=== PATIENT | female | born 1950 | race American Indian/Alaskan Native ===

== ENCOUNTER 2017-06-23 19:54 | Emergency (ER) | payer MEDICARE, OTHER ==
--- NOTE | 2017-06-23 23:12 | Emergency Department Report ---
- General Chief Complaint: Upper Respiratory Infection Stated Complaint: SEVERE COUGH Time Seen by Provider: 06/23/17 23:11 Source: patient Mode of arrival: Ambulatory Limitations: No Limitations - History of Present Illness Initial Comments: 66F PMH HTN, Arthritis p/w c/o persistent cough x4 days. Denies nausea, vomiting , fever, chills, chest pain, abdominal pain. AAOx3, speaking in fulls sentences , no audible wheezing or stridor. States cough is slightly productive. Has been taking some yaxt-vpy-nlntlor cold medicine with minimal relief of cough. States she has multiple sick family members with similar symptoms. MD Complaint: cough Onset/Timin -: week(s) Severity: moderate Consistency: constant Improves With: OTC cold medicine Context: sick contacts Associated Symptoms: cough Treatments Prior to Arrival: "cold medicine" - Related Data Previous Rx's Medication Instructions Recorded Last Taken Type EPINEPHrine [Epipen 2-Aaron] 0.3 mg IM ONCE #1 ml 05/22/15 Unknown Rx Ibuprofen [Motrin] 600 mg PO Q8H PRN #40 tablet 11/11/15 Unknown Rx predniSONE [Deltasone] 50 mg PO QDAY #5 tab 11/11/15 Unknown Rx traMADol [Ultram] 50 mg PO Q4HR PRN #20 tablet 11/11/15 Unknown Rx Albuterol Sulfate [Ventolin Hfa] 1 puff IH Q4H PRN #1 hfa.aer.ad 06/24/17 Unknown Rx Benzonatate [Tessalon Perles] 100 mg PO Q8HR PRN #30 capsule 06/24/17 Unknown Rx Naproxen 250 mg PO BID PRN #20 tablet 06/24/17 Unknown Rx Phenylephrine/Dm/Acetaminop/GG 10 ml PO Q4H PRN #1 liquid 06/24/17 Unknown Rx [Mucinex Xsdb-Whq-Bwpeajnhvg Lq] Allergies Allergy/AdvReac Type Severity Reaction Status Date / Time acetaminophen Allergy Rash Verified 11/11/15 10:57 [From Tylenol-Codeine #3] codeine phosphate Allergy Rash Verified 11/11/15 10:57 [From Tylenol-Codeine #3] Fish Containing Products Allergy Anaphylaxis Verified 11/11/15 10:57 ED Review of Systems ROS: Stated complaint: SEVERE COUGH Other details as noted in HPI Constitutional: denies: chills, fever Eyes: denies: eye pain, eye discharge, vision change ENT: denies: ear pain, throat pain Respiratory: cough. denies: shortness of breath, wheezing Cardiovascular: denies: chest pain, palpitations Endocrine: no symptoms reported Gastrointestinal: denies: abdominal pain, nausea, diarrhea Genitourinary: denies: urgency, dysuria, discharge Musculoskeletal: denies: back pain, joint swelling, arthralgia Skin: denies: rash, lesions Neurological: denies: headache, weakness, paresthesias Psychiatric: denies: anxiety, depression Hematological/Lymphatic: denies: easy bleeding, easy bruising ED Past Medical Hx - Past Medical History Hx Hypertension: Yes Hx Arthritis: Yes Hx Psychiatric Treatment: Yes (anxiety) - Social History Smoking Status: Never Smoker Substance Use Type: None - Medications Home Medications: Home Medications Medication Instructions Recorded Confirmed Last Taken Type EPINEPHrine [Epipen 2-Aaron] 0.3 mg IM ONCE #1 ml 05/22/15 Unknown Rx Ibuprofen [Motrin] 600 mg PO Q8H PRN #40 tablet 11/11/15 Unknown Rx predniSONE [Deltasone] 50 mg PO QDAY #5 tab 11/11/15 Unknown Rx traMADol [Ultram] 50 mg PO Q4HR PRN #20 tablet 11/11/15 Unknown Rx Albuterol Sulfate [Ventolin Hfa] 1 puff IH Q4H PRN #1 hfa.aer.ad 06/24/17 Unknown Rx Benzonatate [Tessalon Perles] 100 mg PO Q8HR PRN #30 capsule 06/24/17 Unknown Rx Naproxen 250 mg PO BID PRN #20 tablet 06/24/17 Unknown Rx Phenylephrine/Dm/Acetaminop/GG 10 ml PO Q4H PRN #1 liquid 06/24/17 Unknown Rx [Mucinex Quig-Sax-Meysgbncqq Lq] ED Physical Exam - General Limitations: No Limitations General appearance: alert, in no apparent distress - Head Head exam: Present: atraumatic, normocephalic - Eye Eye exam: Present: normal appearance, PERRL, EOMI - ENT ENT exam: Present: mucous membranes moist - Neck Neck exam: Present: normal inspection - Respiratory Respiratory exam: Present: normal lung sounds bilaterally. Absent: respiratory distress - Cardiovascular Cardiovascular Exam: Present: regular rate, normal rhythm. Absent: systolic murmur, diastolic murmur, rubs, gallop - GI/Abdominal GI/Abdominal exam: Present: soft, normal bowel sounds - Extremities Exam Extremities exam: Present: normal inspection - Back Exam Back exam: Present: normal inspection - Neurological Exam Neurological exam: Present: alert, oriented X3 - Psychiatric Psychiatric exam: Present: normal affect, normal mood - Skin Skin exam: Present: warm, dry, intact, normal color. Absent: rash ED Course Vital Signs 06/23/17 20:30 Temperature 98.9 F Pulse Rate 68 Respiratory 18 Rate Blood Pressure 139/83 O2 Sat by Pulse 98 Oximetry ED Medical Decision Making - Medical Decision Making A/P: Upper respiratory infection 1-naproxen, Mucinex, albuterol inhaler, Tessalon Perles 2-as patient has only had cough for 4 days and x-ray is unremarkable without fever hypoxia or tachycardia no indication for antibiotics at this time 3-follow-up with primary care doctor Critical care attestation.: If time is entered above; I have spent that time in minutes in the direct care of this critically ill patient, excluding procedure time. ED Disposition Clinical Impression: Upper respiratory infection Qualifiers: URI type: unspecified viral URI Qualified Code(s): J06.9 - Acute upper respiratory infection, unspecified; B97.89 - Other viral agents as the cause of diseases classified elsewhere; B97.89 - Other viral agents as the cause of diseases classified elsewhere Disposition: DC-01 TO HOME OR SELFCARE Is pt being admited?: No Does the pt Need Aspirin: No Condition: Stable Instructions: Cold Symptoms (ED), Upper Respiratory Infection (ED), Viral Syndrome (ED) Prescriptions: Albuterol Sulfate [Ventolin Hfa] 1 puff IH Q4H PRN #1 hfa.aer.ad PRN Reason: Cough Benzonatate [Tessalon Perles] 100 mg PO Q8HR PRN #30 capsule PRN Reason: Cough Naproxen 250 mg PO BID PRN #20 tablet PRN Reason: Fever Phenylephrine/Dm/Acetaminop/GG [Mucinex Vprn-Zgt-Iltzaobofe Lq] 10 ml PO Q4H PRN #1 liquid PRN Reason: Cough Referrals: [facility] [Outside] - 3-5 Days [facility] [Outside] - 3-5 Days CARROL VILLANUEVA MD [Staff Physician] - 3-5 Days Forms: Work/School Release Form(ED) Time of Disposition: 00:43
--- NOTE | 2017-06-23 23:47 | XRay Report ---
FINAL REPORT PROCEDURE: XR CHEST ROUTINE 2V TECHNIQUE: PA and lateral chest radiographs were obtained. CPT 78500 HISTORY: worsening cough ? PNA COMPARISON: No prior studies are available for comparison. FINDINGS: Heart: Normal. Mediastinum/Vessels: Normal. Lungs/Pleural space: Normal. Bony thorax: No acute osseous abnormality. Other: IMPRESSION: Normal examination.
[2017-06-24] MEDS ORDERED: DUONEB *Not for PRN Use IH ONE ×2 (00:05→00:08)
[2017-06-24] MEDS ORDERED: GUAIFENESIN DM SYRUP PO ONE (00:05)
[2017-06-24 01:05] VITALS: BP 134/80
== END 2017-06-24 01:05 | disposition home or self-care (01) ==
LOC: ED 19:54
DX: J06.9 Acute upper respiratory infection, unspecified (principal); B97.89 Other viral agents as the cause of diseases classified elsewhere; I10 Essential (primary) hypertension
CPT/HCPCS: 71020; 94640